=== PATIENT | female | born 2000 | race African-American/Black ===

== ENCOUNTER 2020-02-07 01:19 | Emergency (ER) | payer OTHER ==
[~2020-02-07] VITALS: Ht 162.6 cm; Wt 46.3 kg
[2020-02-07 03:24] LABS: URINE BILIRUBIN NEGATIVE (Negative); URINE BLOOD 3+ (Negative); URINE CLARITY CLOUDY; URINE COLOR YELLOW; URINE GLUCOSE-RANDOM* NEGATIVE (Negative); URINE KETONES NEGATIVE (Negative); URINE LEUKOCYTES-REFLEX TRACE (Negative); URINE PROTEIN (DIPSTICK) NEGATIVE (Negative); URINE SPECIFIC GRAVITY 1.025 (1.005-1.035)
[2020-02-07 03:27] LABS: URINE NITRITE-REFLEX POSITIVE (Negative)
[2020-02-07 03:31] LABS: SQUAMOUS 4-10 Moderate /LPF (0-3)
[2020-02-07 03:32] LABS: BACTERIA-REFLEX >30 Many /HPF (None Seen); CASTS None Seen /LPF (None Seen); CRYSTALS None Seen /LPF (None Seen); MUCUS 0-3 Light strn/LPF (None Seen); URINE WBC-REFLEX 6-15 Few /HPF (0-5)
[2020-02-07] MEDS ORDERED: KEFLEX500 M1 PO (03:42)
[2020-02-07 03:59] VITALS: BP 98/57
== END 2020-02-07 04:00 | disposition home or self-care (01) ==
LOC: ER 01:19
PROVIDERS: Emergency Medicine
DX: N39.0 Urinary tract infection, site not specified (principal); N94.6 Dysmenorrhea, unspecified; N93.8 Other specified abnormal uterine and vaginal bleeding

== ENCOUNTER 2020-07-27 11:36 | Emergency (ER) | payer OTHER ==
[~2020-07-27] VITALS: Ht 162.6 cm; Wt 42.6 kg
[~2020-07-27 11:36] MED LIST: KEFLEX500 M1 PO
[2020-07-27 12:04] LABS: URINE BILIRUBIN NEGATIVE (Negative); URINE BLOOD TRACE (Negative); URINE CLARITY CLEAR; URINE COLOR YELLOW; URINE GLUCOSE-RANDOM* NEGATIVE (Negative); URINE KETONES NEGATIVE (Negative); URINE LEUKOCYTES-REFLEX NEGATIVE (Negative); URINE PROTEIN (DIPSTICK) NEGATIVE (Negative); URINE SPECIFIC GRAVITY 1.025 (1.005-1.035); URINE UROBILINOGEN 0.2 E.U./dl (0.2-1.0)
[2020-07-27 12:06] LABS: URINE NITRITE-REFLEX POSITIVE (Negative)
[2020-07-27 12:13] LABS: CASTS None Seen /LPF (None Seen); MUCUS >6 Heavy strn/LPF (None Seen); SQUAMOUS >10 Many /LPF (0-3)
[2020-07-27 12:14] LABS: BACTERIA-REFLEX >30 Many /HPF (None Seen); CRYSTALS None Seen /LPF (None Seen); URINE RBC 0-2 Rare /HPF (0-2); URINE WBC-REFLEX 0-5 Rare /HPF (0-5)
[2020-07-27] MEDS ORDERED: KEFLEX500 M1 PO (12:17)
[2020-07-27] MEDS ORDERED: PHENAZOPYRIDIN200 M2 PO (12:17)
[2020-07-27] MEDS ORDERED: NAPROSYN500 MG PO (12:17)
[2020-07-27 12:28] VITALS: BP 88/56
== END 2020-07-27 12:30 | disposition home or self-care (01) ==
LOC: ER 11:36
PROVIDERS: Emergency Medicine
DX: N39.0 Urinary tract infection, site not specified (principal); N94.6 Dysmenorrhea, unspecified